=== PATIENT | male | born 1965 | race Caucasian/White ===

== ENCOUNTER 2018-01-21 09:36 | Inpatient (IN) | payer OTHER ==
[2018-01-21 10:40] VITALS: BMI 23.0
--- NOTE | 2018-01-21 10:55 | HP ---
COWS - Scale Resting Pulse: 0= [place] 80 or Below Sweatin= Chills/Flushing Restless Observation: 0= Sits Still Pupil Size: 0= Normal to Room Light Bone or Joint Aches: 1= Mild Discomfort Runny Nose/ Eye Tearin= Runny Nose/Eyes GI Upset > 30mins: 2= Nausea/Diarrhea Tremor Observation: 0= None Yawning Observation: 0= None Anxiety or Irritability: 1=Feels Anxious/Irritable Goose Flesh Skin: 0=Smooth Skin COWS Score: 7 CIWA Score - CIWA Score Nausea/Vomitin-Mild Nausea/No Vomiting Muscle Tremors: None Anxiety: 2 Agitation: 0-Normal Activity Paroxysmal Sweats: 2 Orientation: 0-Oriented Tacttile Disturbances: 0-None Auditory Disturbances: 0-None Visual Disturbances: 0-None Headache: 0-None Present CIWA-Ar Total Score: 5 Admission ROS S - HPI Allergies/Adverse Reactions: Allergies Allergy/AdvReac Type Severity Reaction Status Date / Time Fish Containing Products Allergy Verified 01/21/18 11:04 History of Present Illness: pt here requesting detox from heroin use , reports 1 bundle/ day via inhalation , denies ivdu , use since age 14 , latest last night , prior detox 90 days ago @ [facility] . utox + mop, + oxy , + mtd reports took methadone from a friend denies pills tobacco ; 1 ppd requesting nrt w/ gum denies other illicits etoh : every 2 days : 1 pint ,reports tremors if not drinking , + nausea , latest use last night lost 40 lbs in the last 3 mo 2/2 not eating pmhx : denies pshx : denies psych : denies meds : denies - Ebola screening Have you traveled outside of the country in the last 21 days: No Have you had contact with anyone from an Ebola affected area: No Have you been sick,other than usual withdrawal symptoms: No - Review of Systems Constitutional: See HPI EENT: reports: No Symptoms Reported Respiratory: reports: No Symptoms reported Cardiac: reports: No Symptoms Reported GI: reports: See HPI : reports: No Symptoms Reported Musculoskeletal: reports: See HPI Integumentary: reports: No Symptoms Reported Neuro: reports: See HPI Endocrine: reports: No Symptoms Reported Hematology: reports: No Symptoms Reported Psychiatric: reports: No Sypmtoms Reported, Judgement Intact, Orientated x3 Patient History - Patient Medical History Hx Asthma: Yes (HAS NOT USED ALBUTEROL FOR A WHILE) Hx Chronic Obstructive Pulmonary Disease (COPD): No Hx Cardiac Disorders: No Hx Hypertension: No Hx Hypercholesterolemia: No HX Cerebrovascular Accident: No Hx Seizures: No Hx Diabetes: No Hx Gastrointestinal Disorders: Yes (NOT CURRENTLY ON MED) Hx Genitourinary Disorders: No Hx Sexually Transmitted Disorders: No Hx Renal Disease (ESRD): No Hx Thyroid Disease: No Hx Human Immunodeficiency Virus (HIV): No (NEGATIVE HX) Hx Hepatitis C: No Hx Depression: No Hx Suicide Attempt: No (DENIES) Hx Schizophrenia: No - Patient Surgical History Past Surgical History: No Hx Neurologic Surgery: No Hx Cataract Extraction: No Hx Cardiac Surgery: No Hx Lung Surgery: No Hx Breast Surgery: No Hx Breast Biopsy: No Hx Abdominal Surgery: No Hx Appendectomy: No Hx Cholecystectomy: No Hx Genitourinary Surgery: No Hx Section: No Hx Orthopedic Surgery: No Anesthesia Reaction: No - PPD History Date: 12/31/13 - Smoking Cessation Smoking history: Current every day smoker Have you smoked in the past 12 months: Yes Aproximately how many cigarettes per day: 20 Hx Chewing Tobacco Use: No Initiated information on smoking cessation: No Family Disease History - Family Disease History Family History: Denies Admission Physical Exam BHS - Vital Signs Vital Signs: Vital Signs - 24 hr 01/21/18 10:27 Temperature 97.3 F L Pulse Rate 62 Respiratory 18 Rate Blood Pressure 107/68 - Physical General Appearance: Yes: Nourished, Appropriately Dressed, Mild Distress HEENTM: Yes: EOMI, Hearing grossly Normal, Normal ENT Inspection, Normocephalic , Normal Voice, LAI, Pharynx Normal, Other (glasses) Respiratory: Yes: Within Normal Limits, Chest Non-Tender, Lungs Clear, Normal Breath Sounds, No Respiratory Distress, No Accessory Muscle Use Neck: Yes: Within Normal Limits, No masses,lesions,Nodules, Trachea in good position Cardiology: Yes: Within Normal Limits, Regular Rhythm, Regular Rate Abdominal: Yes: Within Normal Limits, Normal Bowel Sounds, Non Tender, Flat, Soft Genitourinary: Yes: Within Normal Limits Back: Yes: Within Normal Limits, Normal Inspection Musculoskeletal: Yes: Within Normal Limits, full range of Motion, Gait Steady, Pelvis Stable Extremities: Yes: Within Normal Limits, Normal Capillary Refill, Normal Inspection, Normal Range of Motion, Non-Tender Neurological: Yes: Within Normal Limits, Fully Oriented, Alert, Motor Strength 5 /5, Normal Mood/Affect, Normal Response Integumentary: Yes: Within Normal Limits, Normal Color, Dry, Warm - Diagnostic (1) Opioid withdrawal Current Visit: Yes Status: Acute (2) Alcohol dependence Current Visit: Yes Status: Acute Qualifiers: Substance use status: uncomplicated Qualified Code(s): F10.20 - Alcohol dependence, uncomplicated BHS Breath Alcohol Content Breath Alcohol Content: 0 Urine Drug Screen - Results Drug Screen Negative: No Urine Drug Screen Results: OPI-Opiates, MTD-Methadone, OXY-Oxycodone
[2018-01-21] MEDS ORDERED: chlordiazePOXIDE HCL 25 MG CAPSULE PO PRN (11:01)
[2018-01-21] MEDS ORDERED: NICOTINE POLACRILEX 2 MG GUM BUC PRN (11:48)
[2018-01-21] MEDS ORDERED: ACETAMINOPHEN 325 MG TABLET (FP) PO PRN (12:09)
[2018-01-21] MEDS ORDERED: P-EPHED 60MG/TRIPROLIDI 2.5MG TABLET PO PRN (12:09)
[2018-01-21] MEDS ORDERED: MENTHOL/PHENOL 1 EACH UD MM PRN (12:09)
[2018-01-21] MEDS ORDERED: LOPERAMIDE HCL 2 MG CAPSULE PO PRN (12:09)
[2018-01-21] MEDS ORDERED: MAGNESIUM HYDROX 2400MG/30ML ORAL SUSPENSION 30 ML CUP PO PRN (12:09)
[2018-01-21] MEDS ORDERED: guaiFENesin/D-METHORPHAN HB 10 ML UNIT-DOSE CUPS PO PRN (12:09)
[2018-01-21] MEDS ORDERED: IBUPROFEN 400 MG TABLET (FP) PO PRN (12:09)
[2018-01-21] MEDS ORDERED: MAG HYDROX/AL HYDROX/SIMETH 30 ML UNIT-DOSE CUP PO PRN (12:09)
[2018-01-21] MEDS ORDERED: MAGNESIUM CITRATE 300 ML BOTTLE PO PRN (12:09)
[2018-01-21] MEDS ORDERED: METHADONE HCL 10 MG TABLET (FOR DETOX USE ONLY) PO ONE ×2 (13:00→23:00)
[2018-01-21] MEDS: chlordiazePOXIDE HCL 25 MG CAPSULE PO SCH ×2 (17:20→22:33)
[2018-01-21] MEDS ORDERED: MELATONIN 5 MG TABLETS PO PRN (22:00)
[2018-01-21] MEDS: THIAMINE HCL 100 MG TABLET (FP) PO SCH (22:32)
[2018-01-22] MEDS: chlordiazePOXIDE HCL 25 MG CAPSULE PO SCH ×4 (05:28→22:40)
--- NOTE | 2018-01-22 09:52 | EKG ---
Test Reason : Blood Pressure : / mmHG Vent. Rate : 064 BPM Atrial Rate : 064 BPM P-R Int : 154 ms QRS Dur : 084 ms QT Int : 394 ms P-R-T Axes : 076 059 036 degrees QTc Int : 406 ms NORMAL SINUS RHYTHM NORMAL ECG NO PREVIOUS ECGS AVAILABLE Confirmed by MAYRA DODGE, DAISY ([id number]) on 01/22/2018 9:51:59 AM Referred By: Confirmed By:DAISY NUNEZ MD
[2018-01-22] MEDS: PRENATAL VITAMINS W/ FOLIC ACID TABLET (FP) PO SCH (09:56)
[2018-01-22 09:57] LABS: HEMATOCRIT 40.4 % (35.4-49); HEMOGLOBIN 13.1 GM/dL (11.7-16.9); MCH 29.7 pg (25.7-33.7); MCHC 32.4 g/dl (32.0-35.9); MEAN CELL VOLUME 91.6 fl (80-96); MEAN PLT VOLUME 11.4 fl (7.5-11.1); PLATELET COUNT 207 K/MM3 (134-434); RBC 4.41 M/mm3 (4.00-5.60)
[2018-01-22] MEDS ORDERED: METHADONE HCL 10 MG TABLET (FOR DETOX USE ONLY) PO SCH (10:00)
--- NOTE | 2018-01-22 10:52 | PN ---
S CIWA - CIWA Score Nausea/Vomitin Muscle Tremors: 2 Anxiety: 1-Mildly Anxious Agitation: 1-Slight > Activity Paroxysmal Sweats: 2 Orientation: 0-Oriented Tacttile Disturbances: 0-None Auditory Disturbances: 0-None Visual Disturbances: 0-None Headache: 3-Moderate CIWA-Ar Total Score: 11 BHS COWS - Scale Resting Pulse: 0= [place] 80 or Below Sweatin= Chills/Flushing Restless Observation: 0= Sits Still Pupil Size: 2= Moderately Dilated Bone or Joint Aches: 1= Mild Discomfort Runny Nose/ Eye Tearin= None GI Upset > 30mins: 2= Nausea/Diarrhea Tremor Observation of Outstretched Hands: 2= Slight Tremor Visible Yawning Observation: 1= 1-2x During Session Anxiety or Irritability: 1=Feels Anxious/Irritable Goose Flesh Skin: 0=Smooth Skin COWS Score: 10 BHS Progress Note (SOAP) Subjective: PATIENT C/O CHILLS, SWEATING, BODY ACHES, NAUSEA AND DIARRHEA. Objective: 01/22/18 10:50 Vital Signs Temperature 96.4 F L 01/22/18 09:39 Pulse Rate 86 01/22/18 09:39 Respiratory Rate 18 01/22/18 09:39 Blood Pressure 107/75 01/22/18 09:39 O2 Sat by Pulse Oximetry (%) Laboratory Tests 01/22/18 06:00 WBC 7.0 RBC 4.41 Hgb 13.1 Hct 40.4 D MCV 91.6 MCH 29.7 MCHC 32.4 RDW 14.0 Plt Count 207 MPV 11.4 H SKIN +GOOSEFLESH, INTACT, MOIST CAR S1S2 RESP CTA BL GI SOFT, HYPERACTIVE BS, NT EXT +TREMORS, FULL ROM Assessment: 01/22/18 10:51 WITHDRAWAL SYNDROME Plan: CONTINUE IMMODIUM PRN ENCOURAGE ORAL FLUIDS CONTINUE DETOX AND MONITOR CLINICALLY
[2018-01-22 10:53] LABS: ALBUMIN 3.6 g/dl (3.4-5.0); ALK PHOS 118 U/L (45-117); ANION GAP 6 MMOL/L (8-16); BILIRUBIN,TOTAL 0.4 mg/dL (0.2-1); BLOOD UREA NITROGEN 11 mg/dL (7-18); CALCIUM 8.9 mg/dL (8.5-10.1); CHLORIDE 105 mmol/L (98-107); CO2 28 mmol/L (21-32); CREATININE 0.9 mg/dL (0.55-1.3); GLUCOSE,RANDOM 81 mg/dL (74-106); POTASSIUM 4.2 mmol/L (3.5-5.1); SGOT/AST 23 U/L (15-37); SGPT/ALT 29 U/L (13-61); SODIUM 139 mmol/L (136-145); TOT PROT 6.9 g/dl (6.4-8.2)
[2018-01-22] MEDS: THIAMINE HCL 100 MG TABLET (FP) PO SCH (22:40)
[2018-01-23] MEDS: chlordiazePOXIDE HCL 25 MG CAPSULE PO SCH ×2 (04:45→11:06)
[2018-01-23] MEDS ORDERED: METHADONE HCL 5 MG TABLET (FOR DETOX USE ONLY) PO SCH (10:00)
[2018-01-23 10:18] VITALS: BP 140/80; PULSE 78; TEMP 96.6
[2018-01-23] MEDS: PRENATAL VITAMINS W/ FOLIC ACID TABLET (FP) PO SCH (10:46)
--- NOTE | 2018-01-23 11:22 | PN ---
S CIWA - CIWA Score Nausea/Vomitin-No Nausea/No Vomiting Muscle Tremors: 2 Anxiety: 4-Mod. Anxious/Guarded Agitation: 4-Moderately Restless Paroxysmal Sweats: 2 Orientation: 0-Oriented Tacttile Disturbances: 0-None Auditory Disturbances: 0-None Visual Disturbances: 0-None Headache: 0-None Present CIWA-Ar Total Score: 12 BHS COWS - Scale Resting Pulse: 0= [place] 80 or Below Sweatin=Flushed/Facial Moisture Restless Observation: 1= Difficult to Sit Still Pupil Size: 0= Normal to Room Light Bone or Joint Aches: 2= Severe Diffuse Aches Runny Nose/ Eye Tearin= None GI Upset > 30mins: 0= None Tremor Observation of Outstretched Hands: 2= Slight Tremor Visible Yawning Observation: 0= None Anxiety or Irritability: 2=Irritable/Anxious Goose Flesh Skin: 0=Smooth Skin COWS Score: 9 BHS Progress Note (SOAP) Subjective: PATIENT C/O BODY ACHES, CHILLS, SWEATING. ANXIOUS AND IRRITABLE. Objective: 01/23/18 11:19 Vital Signs Temperature 96.6 F L 01/23/18 10:17 Pulse Rate 78 01/23/18 10:17 Respiratory Rate 20 01/23/18 10:17 Blood Pressure 140/80 01/23/18 10:17 O2 Sat by Pulse Oximetry (%) Laboratory Tests 01/22/18 01/22/18 01/22/18 06:00 06:00 06:00 WBC 7.0 RBC 4.41 Hgb 13.1 Hct 40.4 D MCV 91.6 MCH 29.7 MCHC 32.4 RDW 14.0 Plt Count 207 MPV 11.4 H Sodium 139 Potassium 4.2 Chloride 105 Carbon Dioxide 28 Anion Gap 6 L BUN 11 Creatinine 0.9 Creat Clearance w eGFR > 60 Random Glucose 81 Calcium 8.9 Total Bilirubin 0.4 AST 23 ALT 29 Alkaline Phosphatase 118 H Total Protein 6.9 Albumin 3.6 RPR Titer Nonreactive PE: ALERT AND ORIENTED X 3 SKIN WARM AND MOIST EXT FULL ROM PATIENT IRRITABLE AND ANXIOUS. PATIENT STATES " I AM HERE GOING THROUGH THIS BECAUSE OF MY FUCKING " Assessment: 01/23/18 11:22 WITHDRAWAL SYNDROME Plan: CONTINUE DETOX ENCOURAGE ORAL FLUIDS VISTARIL PRN CONTINUED CONTINUE TO MONITOR
[2018-01-23] MEDS ORDERED: chlordiazePOXIDE 5 MG CAPSULE PO SCH (17:00)
--- NOTE | 2018-01-23 20:08 | DS ---
[facility] Detox Discharge Summary Admission Date: 01/21/18 Discharge Date: 01/23/18 - History Present History: Alcohol Dependence, Opioid Dependence - Physical Exam Results Vital Signs: Vital Signs Temperature 96.6 F L 01/23/18 10:17 Pulse Rate 78 01/23/18 10:17 Respiratory Rate 20 01/23/18 10:17 Blood Pressure 140/80 01/23/18 10:17 O2 Sat by Pulse Oximetry (%) - Medication Discharge Medications: Ambulatory Orders NK [No Known Home Medication] 12/29/13 - Diagnosis (1) Opioid withdrawal Status: Acute (2) Heroin dependence Status: Acute - AMA Did Patient Leave Against Medical Advice: Yes
[2018-01-24] MEDS ORDERED: METHADONE HCL 10 MG TABLET (FOR DETOX USE ONLY) PO SCH (10:00)
[2018-01-24] MEDS ORDERED: chlordiazePOXIDE HCL 10 MG CAPSULE PO SCH (17:00)
[2018-01-25] MEDS ORDERED: METHADONE HCL 5 MG TABLET (FOR DETOX USE ONLY) PO SCH (06:00)
== END 2018-01-23 11:00 | disposition left against medical advice (07) | DRG 770 ==
LOC: YASAS 09:36 → Y3N 12:41
PROC: HZ2ZZZZ Detoxification Services for Substance Abuse Treatment (ICD-10-PCS; principal; 2018-01-20)
DX: F11.23 Opioid dependence with withdrawal (principal); F10.230 Alcohol dependence with withdrawal, uncomplicated; F17.210 Nicotine dependence, cigarettes, uncomplicated; Z91.013 Allergy to seafood
CPT/HCPCS: 36415; 80053; 85027; 86593; 93005; 93010

== ENCOUNTER 2018-07-27 12:16 | Inpatient (IN) | payer OTHER ==
[2018-07-27 13:15] VITALS: BMI 22.8
--- NOTE | 2018-07-27 13:34 | HP ---
COWS - Scale Resting Pulse: 0= [place] 80 or Below Sweatin= Chills/Flushing Restless Observation: 3= Extraneous Movement Pupil Size: 1= Pupils >than Normal Bone or Joint Aches: 2= Severe Diffuse Aches Runny Nose/ Eye Tearin= Runny Nose/Eyes GI Upset > 30mins: 2= Nausea/Diarrhea Tremor Observation: 2= Slight Tremor Visible Yawning Observation: 1= 1-2x During Session Anxiety or Irritability: 2=Irritable/Anxious Goose Flesh Skin: 0=Smooth Skin COWS Score: 16 CIWA Score - Admission Criteria [facility] Guidelines: Admission for Medically Managed Detox: Requires at least one of the followin. CIWA greater than 12 2. Seizures within the past 24 hours 3. Delirium tremens within the past 24 hours 4. Hallucinations within the past 24 hours 5. Acute intervention needed for co occurring medical disorder 6. Acute intervention needed for co occurring psychiatric disorder 7. Severe withdrawal that cannot be handled at a lower level of care (continued vomiting, continued diarrhea, abnormal vital signs) requiring intravenous medication and/or fluids 8. Admission ROS S - HPI Chief Complaint: i need help to stop using heroin Allergies/Adverse Reactions: Allergies Allergy/AdvReac Type Severity Reaction Status Date / Time Fish Containing Products Allergy Severe Rash Verified 01/21/18 12:24 NKDA Allergy Uncoded 01/21/18 12:38 History of Present Illness: this 53 years old male with heroin dependence,seeking detox,withdrawal symptom. has previous admission before,last 01/21/18 to 01/23/18 not completed nicotine dependence 1 pack requesting gum weight loss longest of sobriety 1 and half years arthritis of right foot plan to go to rehab after detox Exam Limitations: No Limitations - Ebola screening Have you traveled outside of the country in the last 21 days: No (N) Have you had contact with anyone from an Ebola affected area: No Do you have a fever: No - Review of Systems Constitutional: Chills, Loss of Appetite, Malaise, Night Sweats, Changes in sleep, Weakness, Unintentional Wgt. Loss EENT: reports: Tearing, Nose Congestion Respiratory: reports: No Symptoms reported Cardiac: reports: No Symptoms Reported GI: reports: Nausea, Vomiting, Abdominal cramping : reports: No Symptoms Reported Musculoskeletal: reports: Back Pain, Muscle Pain, Neck Pain, Joint Stiffness Integumentary: reports: Dryness Neuro: reports: Headache, Tremors Endocrine: reports: No Symptoms Reported Hematology: reports: No Symptoms Reported Psychiatric: reports: No Sypmtoms Reported, Judgement Intact, Mood/Affect Appropiate, Orientated x3 Other Systems: Reviewed and Negative Patient History - Patient Medical History Hx Anemia: No Hx Asthma: Yes (on albuterol inhaler) Hx Chronic Obstructive Pulmonary Disease (COPD): No Hx Cancer: No Hx Cardiac Disorders: No Hx Congestive Heart Failure: No Hx Hypertension: No Hx Hypercholesterolemia: No Hx Pacemaker: No HX Cerebrovascular Accident: No Hx Seizures: No Hx Diabetes: No Hx Gastrointestinal Disorders: No Hx Liver Disease: No Hx Genitourinary Disorders: No Hx Sexually Transmitted Disorders: No Hx Renal Disease (ESRD): No Hx Thyroid Disease: No Hx Human Immunodeficiency Virus (HIV): No (NEGATIVE HX last 01/30 ) Hx Hepatitis C: No Hx Depression: Yes (no medication) Hx Suicide Attempt: No Hx Bipolar Disorder: No Hx Schizophrenia: No Other Medical History: no suicidal,no homicidal - Patient Surgical History Past Surgical History: No Hx Neurologic Surgery: No Hx Cataract Extraction: No Hx Cardiac Surgery: No Hx Lung Surgery: No Hx Breast Surgery: No Hx Breast Biopsy: No Hx Abdominal Surgery: No Hx Appendectomy: No Hx Cholecystectomy: No Hx Genitourinary Surgery: No Hx Section: No Hx Orthopedic Surgery: No Anesthesia Reaction: No - PPD History Previous Implant?: Yes Documented Results: Negative w/proof Implanted On Prior [facility] Admission?: Yes Date: 01/23/18 Results: 0 mm PPD to be Administered?: No - Smoking Cessation Smoking history: Current every day smoker Have you smoked in the past 12 months: Yes Aproximately how many cigarettes per day: 20 Hx Chewing Tobacco Use: No Initiated information on smoking cessation: Yes 'Breaking Loose' booklet given: 07/27/18 - Substance & Tx. History Hx Alcohol Use: No Hx Substance Use: Yes Substance Use Type: Heroin Hx Substance Use Treatment: Yes ([facility] 01/21/18 to 01/23/18) - Substances abused Heroin Substance route: Inhalation Frequency: Daily Amount used: 15 bags Age of first use: 18 Date of last use: 07/26/18 Family Disease History - Family Disease History Family History: Denies Admission Physical Exam BHS - Vital Signs Vital Signs: Vital Signs - 24 hr 07/27/18 13:13 Temperature 97.8 F Pulse Rate 72 Respiratory 18 Rate Blood Pressure 105/72 - Physical General Appearance: Yes: Moderate Distress, Tremorous, Irritable, Sweating, Anxious HEENTM: Yes: Normocephalic, LAI, Pharynx Normal Respiratory: Yes: Within Normal Limits, Lungs Clear, Normal Breath Sounds Neck: Yes: Within Normal Limits, Supple, Trachea in good position Breast: Yes: Within Normal Limits Cardiology: Yes: Within Normal Limits, Regular Rhythm, Regular Rate, S1, S2 Abdominal: Yes: Within Normal Limits, Normal Bowel Sounds, Non Tender, Flat, Soft Genitourinary: Yes: Within Normal Limits Back: Yes: Muscle Spasm Musculoskeletal: Yes: full range of Motion, Back pain, Joint Stiffness, Muscle Pain Extremities: Yes: Tremors, Other (arthritis of right foot) 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 NML intact, Fully Oriented, Alert, Motor Strength 5/5 Integumentary: Yes: Dry Lymphatic: Yes: Within Normal Limits - Diagnostic (1) Opioid dependence with withdrawal Current Visit: Yes Status: Acute (2) Asthma Current Visit: No Status: Chronic (3) Nicotine dependence Current Visit: Yes Status: Acute (4) Arthritis of right foot Current Visit: Yes Status: Acute (5) Weight loss Current Visit: Yes Status: Acute (6) Depression Current Visit: Yes Status: Acute Cleared for Admission [facility] - Detox or Rehab [facility] Level of Care: Medically Managed Detox Regimen/Protocol: Methadone Breathalyzer - Breathalyzer Breathalyzer: 0 Urine Drug Screen - Test Device Lot number: [id number] Expiration date: 03/14/20 - Control Is test valid?: Yes - Results Drug screen NEGATIVE: No Urine drug screen results: MOP-Opiates, OXY-Oxycodone Inpatient Rehab Admission - Rehab Decision to Admit Inpatient rehab admission?: No
[2018-07-27] MEDS ORDERED: MAGNESIUM CITRATE 300 ML BOTTLE PO PRN (13:43)
[2018-07-27] MEDS ORDERED: NICOTINE POLACRILEX 2 MG GUM BUC PRN (13:43)
[2018-07-27] MEDS ORDERED: MAG HYDROX/AL HYDROX/SIMETH 30 ML UNIT-DOSE CUP PO PRN (13:43)
[2018-07-27] MEDS ORDERED: METHOCARBAMOL 500 MG TABLET PO PRN (13:43)
[2018-07-27] MEDS ORDERED: IBUPROFEN 400 MG TABLET (FP) PO PRN (13:43)
[2018-07-27] MEDS ORDERED: MELATONIN 5 MG TABLETS PO PRN (13:43)
[2018-07-27] MEDS ORDERED: hydrOXYzine PAMOATE 25 MG CAPSULE (FP) PO PRN (13:43)
[2018-07-27] MEDS ORDERED: MAGNESIUM HYDROX 2400MG/30ML ORAL SUSPENSION 30 ML CUP PO PRN (13:43)
[2018-07-27] MEDS ORDERED: MENTHOL/PHENOL 1 EACH UD MM PRN (13:43)
[2018-07-27] MEDS ORDERED: cloNIDine HCL 0.1 MG TABLET PO PRN (13:43)
[2018-07-27] MEDS ORDERED: ACETAMINOPHEN 325 MG TABLET (FP) PO PRN ×2 (13:43)
[2018-07-27] MEDS ORDERED: BISMUTH SUBSALICYLATE 524 MG/30 ML UD PO PRN (13:43)
[2018-07-27] MEDS ORDERED: METHADONE HCL 10 MG TABLET (FOR DETOX USE ONLY) PO ONE ×2 (13:46→23:00)
[2018-07-27] MEDS: clonazePAM 0.5 MG TABLET PO PRN (15:28)
[2018-07-27] MEDS: THIAMINE HCL 100 MG TABLET (FP) PO SCH (22:10)
[2018-07-28 09:58] LABS: HEMATOCRIT 42.8 % (35.4-49); HEMOGLOBIN 14.1 GM/dL (11.7-16.9); MCH 30.1 pg (25.7-33.7); MCHC 33.1 g/dl (32.0-35.9); MEAN CELL VOLUME 91.2 fl (80-96); MEAN PLT VOLUME 9.9 fl (7.5-11.1); PLATELET COUNT 205 K/MM3 (134-434); RBC 4.69 M/mm3 (4.00-5.60); WHITE BLOOD COUNT 6.2 K/mm3 (4.0-10.0)
[2018-07-28] MEDS ORDERED: METHADONE HCL 10 MG TABLET (FOR DETOX USE ONLY) PO ONE (10:00)
--- NOTE | 2018-07-28 10:04 | PN ---
BHS COWS - Scale Resting Pulse: 0= [place] 80 or Below Sweatin= Chills/Flushing Restless Observation: 1= Difficult to Sit Still Pupil Size: 1= Pupils >than Normal Bone or Joint Aches: 2= Severe Diffuse Aches Runny Nose/ Eye Tearin= Nasal Congestion GI Upset > 30mins: 1= Stomach Cramp Tremor Observation of Outstretched Hands: 1= Tremor [place], Not Seen Yawning Observation: 1= 1-2x During Session Anxiety or Irritability: 1=Feels Anxious/Irritable Goose Flesh Skin: 3=Piloerection COWS Score: 13 BHS Progress Note (SOAP) Subjective: general body aches doing well with methadone detox regimen Objective: 07/28/18 10:05 Vital Signs Temperature 98.9 F 07/28/18 09:06 Pulse Rate 61 07/28/18 09:06 Respiratory Rate 18 07/28/18 09:06 Blood Pressure 97/69 07/28/18 09:06 O2 Sat by Pulse Oximetry (%) Laboratory Last Values WBC 6.2 K/mm3 (4.0-10.0) 07/28/18 07:00 RBC 4.69 M/mm3 (4.00-5.60) 07/28/18 07:00 Hgb 14.1 GM/dL (11.7-16.9) 07/28/18 07:00 Hct 42.8 % (35.4-49) 07/28/18 07:00 MCV 91.2 fl (80-96) 07/28/18 07:00 MCH 30.1 pg (25.7-33.7) 07/28/18 07:00 MCHC 33.1 g/dl (32.0-35.9) 07/28/18 07:00 RDW 14.0 % (11.9-15.9) 07/28/18 07:00 Plt Count 205 K/MM3 (134-434) 07/28/18 07:00 MPV 9.9 fl (7.5-11.1) D 07/28/18 07:00 lab noted 07/28/18 10:06 encourage oral fluid 2-3 L daily Assessment: 07/28/18 10:06 withdrawal sx 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
[2018-07-28] MEDS: PRENATAL VITAMINS W/ FOLIC ACID TABLET (FP) PO SCH (10:10)
[2018-07-28] MEDS: clonazePAM 0.5 MG TABLET PO PRN (10:12)
[2018-07-28 10:16] LABS: ALBUMIN 3.2 g/dl (3.4-5.0); ALK PHOS 103 U/L (45-117); ANION GAP 4 MMOL/L (8-16); BILIRUBIN,TOTAL 0.3 mg/dL (0.2-1); BLOOD UREA NITROGEN 15 mg/dL (7-18); CALCIUM 8.7 mg/dL (8.5-10.1); CHLORIDE 108 mmol/L (98-107); CO2 28 mmol/L (21-32); CREATININE 0.8 mg/dL (0.55-1.3); GLUCOSE,RANDOM 97 mg/dL (74-106); POTASSIUM 4.3 mmol/L (3.5-5.1); SGOT/AST 16 U/L (15-37); SGPT/ALT 26 U/L (13-61); SODIUM 139 mmol/L (136-145); TOT PROT 6.3 g/dl (6.4-8.2)
[2018-07-28] MEDS: THIAMINE HCL 100 MG TABLET (FP) PO SCH (22:33)
[2018-07-29] MEDS ORDERED: METHADONE HCL 10 MG TABLET (FOR DETOX USE ONLY) PO ONE (10:00)
[2018-07-29] MEDS: PRENATAL VITAMINS W/ FOLIC ACID TABLET (FP) PO SCH (10:05)
[2018-07-29] MEDS: clonazePAM 0.5 MG TABLET PO PRN (10:05)
--- NOTE | 2018-07-29 11:41 | PN ---
BHS COWS - Scale Resting Pulse: 0= [place] 80 or Below Sweatin= Chills/Flushing Restless Observation: 0= Sits Still Pupil Size: 0= Normal to Room Light Bone or Joint Aches: 1= Mild Discomfort Runny Nose/ Eye Tearin= Nasal Congestion GI Upset > 30mins: 1= Stomach Cramp Tremor Observation of Outstretched Hands: 2= Slight Tremor Visible Yawning Observation: 2= >3x During Session Anxiety or Irritability: 2=Irritable/Anxious Goose Flesh Skin: 0=Smooth Skin COWS Score: 10 BHS Progress Note (SOAP) Subjective: body ache resting on bed low energy Objective: 07/29/18 12:04 Vital Signs Temperature 96.4 F L 07/29/18 09:05 Pulse Rate 60 07/29/18 09:05 Respiratory Rate 20 07/29/18 09:05 Blood Pressure 100/60 07/29/18 09:05 O2 Sat by Pulse Oximetry (%) Laboratory Last Values WBC 6.2 K/mm3 (4.0-10.0) 07/28/18 07:00 RBC 4.69 M/mm3 (4.00-5.60) 07/28/18 07:00 Hgb 14.1 GM/dL (11.7-16.9) 07/28/18 07:00 Hct 42.8 % (35.4-49) 07/28/18 07:00 MCV 91.2 fl (80-96) 07/28/18 07:00 MCH 30.1 pg (25.7-33.7) 07/28/18 07:00 MCHC 33.1 g/dl (32.0-35.9) 07/28/18 07:00 RDW 14.0 % (11.9-15.9) 07/28/18 07:00 Plt Count 205 K/MM3 (134-434) 07/28/18 07:00 MPV 9.9 fl (7.5-11.1) D 07/28/18 07:00 Sodium 139 mmol/L (136-145) 07/28/18 07:00 Potassium 4.3 mmol/L (3.5-5.1) 07/28/18 07:00 Chloride 108 mmol/L (98-107) H 07/28/18 07:00 Carbon Dioxide 28 mmol/L (21-32) 07/28/18 07:00 Anion Gap 4 MMOL/L (8-16) L 07/28/18 07:00 BUN 15 mg/dL (7-18) 07/28/18 07:00 Creatinine 0.8 mg/dL (0.55-1.3) 07/28/18 07:00 Creat Clearance w eGFR 101.51 (>60) 07/28/18 07:00 Random Glucose 97 mg/dL (74-106) 07/28/18 07:00 Calcium 8.7 mg/dL (8.5-10.1) 07/28/18 07:00 Total Bilirubin 0.3 mg/dL (0.2-1) 07/28/18 07:00 AST 16 U/L (15-37) 07/28/18 07:00 ALT 26 U/L (13-61) 07/28/18 07:00 Alkaline Phosphatase 103 U/L (45-117) 07/28/18 07:00 Total Protein 6.3 g/dl (6.4-8.2) L 07/28/18 07:00 Albumin 3.2 g/dl (3.4-5.0) L 07/28/18 07:00 RPR Titer Nonreactive (NONREACTIVE) 07/28/18 07:00 lab noted Assessment: 07/29/18 12:04 withdrawal sx Plan: continue detox
[2018-07-29] MEDS: THIAMINE HCL 100 MG TABLET (FP) PO SCH (22:47)
[2018-07-30 09:14] VITALS: BP 92/54; PULSE 58; TEMP 98.4
[2018-07-30] MEDS ORDERED: METHADONE HCL 10 MG TABLET (FOR DETOX USE ONLY) PO ONE (10:00)
[2018-07-30] MEDS: PRENATAL VITAMINS W/ FOLIC ACID TABLET (FP) PO SCH (10:28)
--- NOTE | 2018-07-30 10:37 | DS ---
[facility] Detox Discharge Summary Admission Date: 07/27/18 Discharge Date: 07/30/18 - History Present History: Opioid Dependence Additional Comments: 53 years old male admitted on 07/27/18 for opiate withdrawal stabilization feeling better today alert no acute distress denies suicidal ideation aftercare Pertinent Past History: bring in medication list and lab report to aftercare appointment - Physical Exam Results Vital Signs: Vital Signs Temperature 98.4 F 07/30/18 09:12 Pulse Rate 58 L 07/30/18 09:12 Respiratory Rate 18 07/30/18 09:12 Blood Pressure 92/54 L 07/30/18 09:12 O2 Sat by Pulse Oximetry (%) Pertinent Admission Physical Exam Findings: opiate withdrawal sx Laboratory Last Values WBC 6.2 K/mm3 (4.0-10.0) 07/28/18 07:00 RBC 4.69 M/mm3 (4.00-5.60) 07/28/18 07:00 Hgb 14.1 GM/dL (11.7-16.9) 07/28/18 07:00 Hct 42.8 % (35.4-49) 07/28/18 07:00 MCV 91.2 fl (80-96) 07/28/18 07:00 MCH 30.1 pg (25.7-33.7) 07/28/18 07:00 MCHC 33.1 g/dl (32.0-35.9) 07/28/18 07:00 RDW 14.0 % (11.9-15.9) 07/28/18 07:00 Plt Count 205 K/MM3 (134-434) 07/28/18 07:00 MPV 9.9 fl (7.5-11.1) D 07/28/18 07:00 Sodium 139 mmol/L (136-145) 07/28/18 07:00 Potassium 4.3 mmol/L (3.5-5.1) 07/28/18 07:00 Chloride 108 mmol/L (98-107) H 07/28/18 07:00 Carbon Dioxide 28 mmol/L (21-32) 07/28/18 07:00 Anion Gap 4 MMOL/L (8-16) L 07/28/18 07:00 BUN 15 mg/dL (7-18) 07/28/18 07:00 Creatinine 0.8 mg/dL (0.55-1.3) 07/28/18 07:00 Creat Clearance w eGFR 101.51 (>60) 07/28/18 07:00 Random Glucose 97 mg/dL (74-106) 07/28/18 07:00 Calcium 8.7 mg/dL (8.5-10.1) 07/28/18 07:00 Total Bilirubin 0.3 mg/dL (0.2-1) 07/28/18 07:00 AST 16 U/L (15-37) 07/28/18 07:00 ALT 26 U/L (13-61) 07/28/18 07:00 Alkaline Phosphatase 103 U/L (45-117) 07/28/18 07:00 Total Protein 6.3 g/dl (6.4-8.2) L 07/28/18 07:00 Albumin 3.2 g/dl (3.4-5.0) L 07/28/18 07:00 RPR Titer Nonreactive (NONREACTIVE) 07/28/18 07:00 lab noted - Treatment Hospital Course: Detox Protocol Followed, Detoxed Safely, Responded well, Discharged Condition Good, Rehab Referral Accepted Patient has Accepted a Rehab Referral to: encourage medication assisted maintenance treatment program - Medication Discharge Medications: Ambulatory Orders Naloxone HCl [Narcan] 4 mg NS ASDIR PRN 07/28/18 - Diagnosis (1) Nicotine dependence Current Visit: Yes Status: Acute Qualifiers: Nicotine product type: cigarettes Substance use status: in withdrawal Qualified Code(s): F17.213 - Nicotine dependence, cigarettes, with withdrawal (2) Opioid dependence with withdrawal Current Visit: Yes Status: Acute (3) Weight loss Current Visit: Yes Status: Acute (4) Acid reflux Current Visit: Yes Status: Chronic Qualifiers: Esophagitis presence: without esophagitis Qualified Code(s): K21.9 - Gastro -esophageal reflux disease without esophagitis (5) Asthma Current Visit: Yes Status: Chronic Qualifiers: Asthma severity: mild Asthma persistence: intermittent Asthma complication type: with status asthmaticus Qualified Code(s): J45.22 - Mild intermittent asthma with status asthmaticus - AMA Did Patient Leave Against Medical Advice: No
[2018-07-31] MEDS ORDERED: METHADONE HCL 5 MG TABLET (FOR DETOX USE ONLY) PO ONE (06:00)
== END 2018-07-30 10:45 | disposition home or self-care (01) | DRG 775 ==
LOC: YASAS 12:16 → Y3N 14:07
PROVIDERS: ADMIT Surgery; ATTEND Surgery
PROC: HZ2ZZZZ Detoxification Services for Substance Abuse Treatment (ICD-10-PCS; principal; 2018-07-27)
DX: F10.230 Alcohol dependence with withdrawal, uncomplicated (principal); F17.213 Nicotine dependence, cigarettes, with withdrawal; F32.9 Major depressive disorder, single episode, unspecified; J45.22 Mild intermittent asthma with status asthmaticus; K21.9 Gastro-esophageal reflux disease without esophagitis; M13.871 Other specified arthritis, right ankle and foot; R63.4 Abnormal weight loss; Z68.22 Body mass index [BMI] 22.0-22.9, adult; Z91.013 Allergy to seafood
CPT/HCPCS: 36415; 80053; 85027; 86593

== ENCOUNTER 2021-08-14 12:18 | Inpatient (IN) | payer OTHER ==
[2021-08-14] MEDS ORDERED: MAGNESIUM HYDROX 2400MG/30ML ORAL SUSPENSION 30 ML CUP PO PRN (12:52)
[2021-08-14] MEDS ORDERED: DICYCLOMINE HCL 10 MG CAPSULE PO PRN (12:52)
[2021-08-14] MEDS ORDERED: LOPERAMIDE HCL 2 MG CAPSULE PO PRN (12:52)
[2021-08-14] MEDS ORDERED: BISMUTH SUBSALICYLATE 262 MG/15 ML BTL PO PRN (12:52)
[2021-08-14] MEDS ORDERED: LORazepam 1 MG TABLET PO PRN (12:52)
[2021-08-14] MEDS ORDERED: MAG HYDROX/AL HYDROX/SIMETH 30 ML UNIT-DOSE CUP PO PRN (12:52)
[2021-08-14] MEDS ORDERED: BENZOCAINE/MENTHOL (CHLORASEPTIC ) LOZENGE MM PRN (12:52)
[2021-08-14] MEDS ORDERED: MAGNESIUM CITRATE 300 ML BOTTLE PO PRN (12:52)
[2021-08-14] MEDS ORDERED: NICOTINE 10 MG CARTRIDGE (INHALER) IH PRN (12:52)
[2021-08-14] MEDS ORDERED: ACETAMINOPHEN 325 MG TABLET (FP) PO PRN ×2 (12:52)
[2021-08-14] MEDS ORDERED: ONDANSETRON *ODT* 4 MG TABLET SL PRN (12:52)
[2021-08-14] MEDS ORDERED: NALOXONE HCL (KLOXXADO) 8 MG SPRAY NS PRN (12:55)
[2021-08-14 14:19] VITALS: BMI 24.3
[2021-08-14 16:45] LABS: CALCIUM 9.1 mg/dL (8.5-10.1)
[2021-08-14 16:46] LABS: ALBUMIN 3.9 g/dl (3.4-5.0); BLOOD UREA NITROGEN 20.2 mg/dL (7-18)
[2021-08-14 16:47] LABS: HEMATOCRIT 42.4 % (35.4-49); HEMOGLOBIN 13.7 GM/dL (11.7-16.9); MCH 29.2 pg (25.7-33.7); MCHC 32.3 g/dl (32.0-35.9); MEAN CELL VOLUME 90.6 fl (80-96); MEAN PLT VOLUME 10.6 fl (7.5-11.1); PLATELET COUNT 205 10^3/uL (134-434); RBC 4.68 M/mm3 (4.00-5.60); RDW 14.5 % (11.9-15.9); WHITE BLOOD COUNT 6.6 K/mm3 (4.0-10.0)
[2021-08-14 16:50] LABS: BILIRUBIN,TOTAL 0.8 mg/dL (0.2-1); TOT PROT 7.6 g/dl (6.4-8.2)
[2021-08-14] MEDS: LORazepam 2 MG TABLET PO SCH ×2 (18:01→23:44)
[2021-08-14] MEDS: PRENATAL VITAMINS W/ FOLIC ACID TABLET (FP) PO SCH (18:02)
[2021-08-14] MEDS: hydrOXYzine PAMOATE 25 MG CAPSULE (FP) PO SCH ×3 (18:02→23:44)
[2021-08-14] MEDS: NICOTINE 21 MG/24 HOURS TOPICAL PATCH TD SCH (18:02)
[2021-08-14] MEDS: IBUPROFEN 400 MG TABLET (FP) PO PRN (18:05)
[2021-08-14] MEDS: MELATONIN 5 MG TABLETS PO SCH (23:44)
[2021-08-14] MEDS: THIAMINE HCL 100 MG TABLET (FP) PO SCH (23:44)
[2021-08-15] MEDS: LORazepam 2 MG TABLET PO SCH ×4 (05:04→22:05)
[2021-08-15] MEDS: hydrOXYzine PAMOATE 25 MG CAPSULE (FP) PO SCH ×5 (05:05→22:07)
[2021-08-15] MEDS ORDERED: methaDONE HCL 10 MG TABLET PO ONE (09:06)
[2021-08-15] MEDS ORDERED: methaDONE 80 MG, methaDONE 10 MG PO ONE (09:10)
[2021-08-15] MEDS ORDERED: methaDONE HCL 10 MG TABLET ONE (10:11)
[2021-08-15] MEDS: PRENATAL VITAMINS W/ FOLIC ACID TABLET (FP) PO SCH (10:12)
[2021-08-15] MEDS ORDERED: methaDONE HCL 40 MG DISPERSABLE TABLET ONE (10:12)
[2021-08-15] MEDS: NICOTINE 21 MG/24 HOURS TOPICAL PATCH TD SCH (10:13)
[2021-08-15] MEDS: IBUPROFEN 400 MG TABLET (FP) PO PRN ×2 (13:22→22:06)
[2021-08-15] MEDS: METHOCARBAMOL 500 MG TABLET PO PRN (13:22)
[2021-08-15 16:37] LABS: HIV INTERPRETATION NEGATIVE (NEGATIVE)
[2021-08-15] MEDS: THIAMINE HCL 100 MG TABLET (FP) PO SCH (22:11)
[2021-08-15] MEDS ORDERED: BENZOCAINE 20 % GEL TUBE MM PRN (22:40)
[2021-08-15] MEDS: MELATONIN 5 MG TABLETS PO SCH (23:31)
[2021-08-16] MEDS ORDERED: methaDONE HCL 40 MG DISPERSABLE TABLET ONE (04:30)
[2021-08-16] MEDS ORDERED: methaDONE HCL 10 MG TABLET ONE (04:30)
[2021-08-16] MEDS: LORazepam 1 MG TABLET PO SCH ×4 (05:26→22:02)
[2021-08-16] MEDS: hydrOXYzine PAMOATE 25 MG CAPSULE (FP) PO SCH ×5 (05:26→22:34)
[2021-08-16] MEDS: methaDONE 80 MG, methaDONE 10 MG PO SCH (05:26)
[2021-08-16] MEDS ORDERED: methaDONE HCL 10 MG TABLET PO SCH (06:00)
[2021-08-16] MEDS: PRENATAL VITAMINS W/ FOLIC ACID TABLET (FP) PO SCH (10:33)
[2021-08-16] MEDS: NICOTINE 21 MG/24 HOURS TOPICAL PATCH TD SCH (10:35)
[2021-08-16] MEDS: IBUPROFEN 400 MG TABLET (FP) PO PRN ×2 (10:37→17:45)
[2021-08-16 14:08] LABS: SARS-CoV-2 NAA Not Detected (Not Detected)
[2021-08-16] MEDS: MELATONIN 5 MG TABLETS PO SCH (22:34)
[2021-08-16] MEDS: THIAMINE HCL 100 MG TABLET (FP) PO SCH (22:34)
[2021-08-17] MEDS ORDERED: LORazepam 0.5 MG TABLET PO PRN
[2021-08-17] MEDS ORDERED: methaDONE HCL 40 MG DISPERSABLE TABLET ONE (04:06)
[2021-08-17] MEDS ORDERED: methaDONE HCL 10 MG TABLET ONE (04:06)
[2021-08-17] MEDS: hydrOXYzine PAMOATE 25 MG CAPSULE (FP) PO SCH ×5 (05:09→22:38)
[2021-08-17] MEDS: methaDONE 80 MG, methaDONE 10 MG PO SCH (05:09)
[2021-08-17] MEDS: LORazepam 0.5 MG TABLET PO SCH ×4 (05:09→22:39)
[2021-08-17] MEDS: METHOCARBAMOL 500 MG TABLET PO PRN (09:07)
[2021-08-17] MEDS: IBUPROFEN 400 MG TABLET (FP) PO PRN (09:07)
[2021-08-17] MEDS: PRENATAL VITAMINS W/ FOLIC ACID TABLET (FP) PO SCH (10:07)
[2021-08-17] MEDS: NICOTINE 21 MG/24 HOURS TOPICAL PATCH TD SCH (10:09)
[2021-08-17] MEDS: MELATONIN 5 MG TABLETS PO SCH (22:38)
[2021-08-17] MEDS: THIAMINE HCL 100 MG TABLET (FP) PO SCH (22:40)
[2021-08-18] MEDS ORDERED: methaDONE HCL 40 MG DISPERSABLE TABLET ONE (04:03)
[2021-08-18] MEDS ORDERED: methaDONE HCL 10 MG TABLET ONE (04:03)
[2021-08-18] MEDS ORDERED: LORazepam 0.5 MG TABLET PO ONE (05:00)
[2021-08-18] MEDS: methaDONE 80 MG, methaDONE 10 MG PO SCH (05:25)
[2021-08-18] MEDS: IBUPROFEN 400 MG TABLET (FP) PO PRN (05:30)
[2021-08-18] MEDS: hydrOXYzine PAMOATE 25 MG CAPSULE (FP) PO SCH ×3 (06:37→14:42)
[2021-08-18] MEDS: PRENATAL VITAMINS W/ FOLIC ACID TABLET (FP) PO SCH (10:25)
[2021-08-18] MEDS: METHOCARBAMOL 500 MG TABLET PO PRN (10:26)
[2021-08-18] MEDS: NICOTINE 21 MG/24 HOURS TOPICAL PATCH TD SCH (11:14)
[2021-08-18 13:25] VITALS: BP 110/82; PULSE 75; TEMP 98
== END 2021-08-18 14:50 | disposition other institution (70) | DRG 773 ==
LOC: YASAS 12:18 → Y6N 16:25
PROVIDERS: ADMIT Allergy & Immunology; ATTEND Allergy & Immunology
PROC: HZ2ZZZZ Detoxification Services for Substance Abuse Treatment (ICD-10-PCS; principal; 2021-08-14)
DX: F10.230 Alcohol dependence with withdrawal, uncomplicated (principal); F11.23 Opioid dependence with withdrawal; F14.20 Cocaine dependence, uncomplicated; F19.280 Other psychoactive substance dependence with psychoactive substance-induced anxiety disorder; F19.24 Other psychoactive substance dependence with psychoactive substance-induced mood disorder; J45.20 Mild intermittent asthma, uncomplicated; F32.A Depression, unspecified; K21.9 Gastro-esophageal reflux disease without esophagitis; M19.071 Primary osteoarthritis, right ankle and foot; Z91.018 Allergy to other foods
CPT/HCPCS: 36415; 80053; 85027; 86780; 87389; 93005; 93010; C9803-CS; U0003; U0005

== ENCOUNTER 2021-08-18 14:49 | Inpatient (IN) | payer OTHER ==
[2021-08-18] MEDS ORDERED: P-EPHED 60MG/TRIPROLIDI 2.5MG TABLET PO PRN (15:20)
[2021-08-18] MEDS ORDERED: MAGNESIUM CITRATE 300 ML BOTTLE PO PRN (15:20)
[2021-08-18] MEDS ORDERED: ACETAMINOPHEN 325 MG TABLET (FP) PO PRN (15:20)
[2021-08-18] MEDS ORDERED: hydrOXYzine PAMOATE 25 MG CAPSULE (FP) PO PRN (15:20)
[2021-08-18] MEDS ORDERED: guaiFENesin 200 MG/10 ML 10 ML UNIT-DOSE CUPS PO PRN (15:20)
[2021-08-18] MEDS ORDERED: BENZOCAINE/MENTHOL (CHLORASEPTIC ) LOZENGE MM PRN (15:20)
[2021-08-18] MEDS ORDERED: MAG HYDROX/AL HYDROX/SIMETH 30 ML UNIT-DOSE CUP PO PRN (15:20)
[2021-08-18] MEDS ORDERED: LOPERAMIDE HCL 2 MG CAPSULE PO PRN (15:20)
[2021-08-18] MEDS ORDERED: MAGNESIUM HYDROX 2400MG/30ML ORAL SUSPENSION 30 ML CUP PO PRN (15:20)
[2021-08-18] MEDS: MELATONIN 5 MG TABLETS PO SCH (21:09)
[2021-08-18] MEDS: IBUPROFEN 400 MG TABLET (FP) PO PRN (21:09)
[2021-08-18] MEDS: THIAMINE HCL 100 MG TABLET (FP) PO SCH (21:10)
[2021-08-19] MEDS ORDERED: methaDONE HCL 40 MG DISPERSABLE TABLET ONE (04:10)
[2021-08-19] MEDS ORDERED: methaDONE HCL 10 MG TABLET ONE (04:10)
[2021-08-19] MEDS: methaDONE 80 MG, methaDONE 10 MG PO SCH (06:07)
[2021-08-19] MEDS: PRENATAL VITAMINS W/ FOLIC ACID TABLET (FP) PO SCH (10:52)
[2021-08-19] MEDS: NICOTINE 21 MG/24 HOURS TOPICAL PATCH TD SCH (10:53)
[2021-08-19] MEDS: IBUPROFEN 400 MG TABLET (FP) PO PRN (19:00)
[2021-08-19] MEDS: THIAMINE HCL 100 MG TABLET (FP) PO SCH (21:52)
[2021-08-19] MEDS: MELATONIN 5 MG TABLETS PO SCH (21:52)
[2021-08-20] MEDS ORDERED: methaDONE HCL 40 MG DISPERSABLE TABLET ONE (04:06)
[2021-08-20] MEDS ORDERED: methaDONE HCL 10 MG TABLET ONE (04:06)
[2021-08-20] MEDS: methaDONE 80 MG, methaDONE 10 MG PO SCH (05:47)
[2021-08-20] MEDS: PRENATAL VITAMINS W/ FOLIC ACID TABLET (FP) PO SCH (11:30)
[2021-08-20] MEDS: NICOTINE 21 MG/24 HOURS TOPICAL PATCH TD SCH (11:30)
[2021-08-20] MEDS: THIAMINE HCL 100 MG TABLET (FP) PO SCH (22:15)
[2021-08-20] MEDS: MELATONIN 5 MG TABLETS PO SCH (22:15)
[2021-08-20] MEDS: IBUPROFEN 400 MG TABLET (FP) PO PRN (22:16)
[2021-08-21] MEDS ORDERED: methaDONE HCL 10 MG TABLET ONE (03:13)
[2021-08-21] MEDS ORDERED: methaDONE HCL 40 MG DISPERSABLE TABLET ONE (03:13)
[2021-08-21] MEDS: methaDONE 80 MG, methaDONE 10 MG PO SCH (05:49)
[2021-08-21] MEDS: PRENATAL VITAMINS W/ FOLIC ACID TABLET (FP) PO SCH (13:54)
[2021-08-21] MEDS: NICOTINE 21 MG/24 HOURS TOPICAL PATCH TD SCH (13:54)
[2021-08-21 17:06] LABS: SARS-CoV-2 NAA Not Detected (Not Detected)
[2021-08-21] MEDS: MELATONIN 5 MG TABLETS PO SCH (22:54)
[2021-08-21] MEDS: THIAMINE HCL 100 MG TABLET (FP) PO SCH (22:54)
[2021-08-21] MEDS: IBUPROFEN 400 MG TABLET (FP) PO PRN (23:45)
[2021-08-22] MEDS ORDERED: methaDONE HCL 40 MG DISPERSABLE TABLET ONE (03:51)
[2021-08-22] MEDS ORDERED: methaDONE HCL 10 MG TABLET ONE (03:51)
[2021-08-22] MEDS: methaDONE 80 MG, methaDONE 10 MG PO SCH (05:29)
[2021-08-22] MEDS: PRENATAL VITAMINS W/ FOLIC ACID TABLET (FP) PO SCH (11:01)
[2021-08-22] MEDS: NICOTINE 21 MG/24 HOURS TOPICAL PATCH TD SCH (11:01)
[2021-08-22] MEDS: MELATONIN 5 MG TABLETS PO SCH (21:33)
[2021-08-22] MEDS: IBUPROFEN 400 MG TABLET (FP) PO PRN (21:33)
[2021-08-22] MEDS: THIAMINE HCL 100 MG TABLET (FP) PO SCH (21:34)
[2021-08-23] MEDS ORDERED: methaDONE HCL 10 MG TABLET ONE (02:52)
[2021-08-23] MEDS ORDERED: methaDONE HCL 40 MG DISPERSABLE TABLET ONE (02:53)
[2021-08-23] MEDS: methaDONE 80 MG, methaDONE 10 MG PO SCH (05:40)
[2021-08-23] MEDS ORDERED: METHOCARBAMOL 500 MG TABLET PO PRN (09:10)
[2021-08-23] MEDS: PRENATAL VITAMINS W/ FOLIC ACID TABLET (FP) PO SCH (11:17)
[2021-08-23] MEDS: NICOTINE 21 MG/24 HOURS TOPICAL PATCH TD SCH (11:17)
[2021-08-23] MEDS: NICOTINE 10 MG CARTRIDGE (INHALER) IH PRN (13:39)
[2021-08-23] MEDS: MELATONIN 5 MG TABLETS PO SCH (21:55)
[2021-08-23] MEDS: THIAMINE HCL 100 MG TABLET (FP) PO SCH (21:55)
[2021-08-24] MEDS ORDERED: methaDONE HCL 40 MG DISPERSABLE TABLET ONE (05:47)
[2021-08-24] MEDS ORDERED: methaDONE HCL 10 MG TABLET ONE (05:47)
[2021-08-24] MEDS: methaDONE 80 MG, methaDONE 10 MG PO SCH (06:20)
[2021-08-24] MEDS: PRENATAL VITAMINS W/ FOLIC ACID TABLET (FP) PO SCH (11:26)
[2021-08-24] MEDS: NICOTINE 21 MG/24 HOURS TOPICAL PATCH TD SCH (11:26)
[2021-08-24] MEDS: THIAMINE HCL 100 MG TABLET (FP) PO SCH (22:31)
[2021-08-24] MEDS: MELATONIN 5 MG TABLETS PO SCH (22:31)
[2021-08-25] MEDS ORDERED: methaDONE HCL 10 MG TABLET ONE (05:35)
[2021-08-25] MEDS: methaDONE 80 MG, methaDONE 10 MG PO SCH (05:36)
[2021-08-25] MEDS ORDERED: methaDONE HCL 40 MG DISPERSABLE TABLET ONE (05:36)
[2021-08-25] MEDS: NICOTINE 10 MG CARTRIDGE (INHALER) IH PRN ×3 (05:38→16:11)
[2021-08-25] MEDS: PRENATAL VITAMINS W/ FOLIC ACID TABLET (FP) PO SCH (10:20)
[2021-08-25] MEDS: NICOTINE 21 MG/24 HOURS TOPICAL PATCH TD SCH (10:20)
[2021-08-25] MEDS: MELATONIN 5 MG TABLETS PO SCH (22:37)
[2021-08-25] MEDS: THIAMINE HCL 100 MG TABLET (FP) PO SCH (22:37)
[2021-08-26] MEDS ORDERED: methaDONE HCL 10 MG TABLET PO SCH (06:15)
[2021-08-26] MEDS ORDERED: methaDONE HCL 10 MG TABLET ONE (06:25)
[2021-08-26] MEDS ORDERED: methaDONE HCL 40 MG DISPERSABLE TABLET ONE (06:26)
[2021-08-26] MEDS: methaDONE 80 MG, methaDONE 10 MG PO SCH (06:42)
[2021-08-26] MEDS: NICOTINE 21 MG/24 HOURS TOPICAL PATCH TD SCH (10:23)
[2021-08-26] MEDS: PRENATAL VITAMINS W/ FOLIC ACID TABLET (FP) PO SCH (10:23)
[2021-08-26] MEDS: MELATONIN 5 MG TABLETS PO SCH (22:12)
[2021-08-26] MEDS: THIAMINE HCL 100 MG TABLET (FP) PO SCH (22:12)
[2021-08-27] MEDS ORDERED: methaDONE HCL 10 MG TABLET ONE (03:18)
[2021-08-27] MEDS ORDERED: methaDONE HCL 40 MG DISPERSABLE TABLET ONE (03:19)
[2021-08-27] MEDS: methaDONE 80 MG, methaDONE 10 MG PO SCH (06:05)
[2021-08-27] MEDS: NICOTINE 21 MG/24 HOURS TOPICAL PATCH TD SCH (11:05)
[2021-08-27] MEDS: PRENATAL VITAMINS W/ FOLIC ACID TABLET (FP) PO SCH (11:05)
[2021-08-27] MEDS: NICOTINE 10 MG CARTRIDGE (INHALER) IH PRN (14:51)
[2021-08-27] MEDS: THIAMINE HCL 100 MG TABLET (FP) PO SCH (22:07)
[2021-08-27] MEDS: MELATONIN 5 MG TABLETS PO SCH (22:07)
[2021-08-28] MEDS ORDERED: methaDONE HCL 10 MG TABLET ONE (05:35)
[2021-08-28] MEDS ORDERED: methaDONE HCL 40 MG DISPERSABLE TABLET ONE (05:36)
[2021-08-28] MEDS: methaDONE 80 MG, methaDONE 10 MG PO SCH (06:12)
[2021-08-28] MEDS: NICOTINE 10 MG CARTRIDGE (INHALER) IH PRN (10:32)
[2021-08-28] MEDS: PRENATAL VITAMINS W/ FOLIC ACID TABLET (FP) PO SCH (10:33)
[2021-08-28] MEDS: NICOTINE 21 MG/24 HOURS TOPICAL PATCH TD SCH (10:33)
[2021-08-28] MEDS: THIAMINE HCL 100 MG TABLET (FP) PO SCH (22:49)
[2021-08-28] MEDS: MELATONIN 5 MG TABLETS PO SCH (22:49)
[2021-08-29] MEDS ORDERED: methaDONE HCL 10 MG TABLET ONE (04:55)
[2021-08-29] MEDS ORDERED: methaDONE HCL 40 MG DISPERSABLE TABLET ONE (04:55)
[2021-08-29] MEDS: methaDONE 80 MG, methaDONE 10 MG PO SCH (07:10)
[2021-08-29] MEDS: PRENATAL VITAMINS W/ FOLIC ACID TABLET (FP) PO SCH (11:41)
[2021-08-29] MEDS: NICOTINE 21 MG/24 HOURS TOPICAL PATCH TD SCH (11:41)
[2021-08-29] MEDS: THIAMINE HCL 100 MG TABLET (FP) PO SCH (21:56)
[2021-08-29] MEDS: MELATONIN 5 MG TABLETS PO SCH (21:56)
[2021-08-30] MEDS ORDERED: methaDONE HCL 10 MG TABLET ONE (04:09)
[2021-08-30] MEDS ORDERED: methaDONE HCL 40 MG DISPERSABLE TABLET ONE (04:10)
[2021-08-30] MEDS: methaDONE 80 MG, methaDONE 10 MG PO SCH (07:05)
[2021-08-30] MEDS: NICOTINE 21 MG/24 HOURS TOPICAL PATCH TD SCH (10:17)
[2021-08-30] MEDS: PRENATAL VITAMINS W/ FOLIC ACID TABLET (FP) PO SCH (10:17)
[2021-08-30] MEDS: MELATONIN 5 MG TABLETS PO SCH (22:00)
[2021-08-30] MEDS: THIAMINE HCL 100 MG TABLET (FP) PO SCH (22:00)
[2021-08-31] MEDS ORDERED: methaDONE HCL 10 MG TABLET ONE (03:11)
[2021-08-31] MEDS ORDERED: methaDONE HCL 40 MG DISPERSABLE TABLET ONE (03:12)
[2021-08-31] MEDS: methaDONE 80 MG, methaDONE 10 MG PO SCH (07:05)
[2021-08-31] MEDS: NICOTINE 21 MG/24 HOURS TOPICAL PATCH TD SCH (10:29)
[2021-08-31] MEDS: PRENATAL VITAMINS W/ FOLIC ACID TABLET (FP) PO SCH (10:29)
[2021-08-31] MEDS: THIAMINE HCL 100 MG TABLET (FP) PO SCH (21:45)
[2021-08-31] MEDS: MELATONIN 5 MG TABLETS PO SCH (21:45)
[2021-09-01] MEDS ORDERED: methaDONE HCL 40 MG DISPERSABLE TABLET ONE (03:32)
[2021-09-01] MEDS ORDERED: methaDONE HCL 10 MG TABLET ONE (03:32)
[2021-09-01] MEDS: methaDONE 80 MG, methaDONE 10 MG PO SCH (07:17)
[2021-09-01] MEDS: NICOTINE 21 MG/24 HOURS TOPICAL PATCH TD SCH (10:19)
[2021-09-01] MEDS: PRENATAL VITAMINS W/ FOLIC ACID TABLET (FP) PO SCH (10:19)
[2021-09-01] MEDS: THIAMINE HCL 100 MG TABLET (FP) PO SCH (21:39)
[2021-09-01] MEDS: MELATONIN 5 MG TABLETS PO SCH (21:39)
[2021-09-02] MEDS ORDERED: methaDONE HCL 40 MG DISPERSABLE TABLET ONE (06:09)
[2021-09-02] MEDS ORDERED: methaDONE HCL 10 MG TABLET ONE (06:09)
[2021-09-02] MEDS: methaDONE 80 MG, methaDONE 10 MG PO SCH (06:09)
[2021-09-02] MEDS: NICOTINE 21 MG/24 HOURS TOPICAL PATCH TD SCH (11:09)
[2021-09-02] MEDS: PRENATAL VITAMINS W/ FOLIC ACID TABLET (FP) PO SCH (11:09)
[2021-09-02] MEDS: THIAMINE HCL 100 MG TABLET (FP) PO SCH (22:11)
[2021-09-02] MEDS: MELATONIN 5 MG TABLETS PO SCH (22:11)
[2021-09-03] MEDS ORDERED: methaDONE HCL 10 MG TABLET ONE (03:36)
[2021-09-03] MEDS ORDERED: methaDONE HCL 40 MG DISPERSABLE TABLET ONE (03:37)
[2021-09-03] MEDS: methaDONE 80 MG, methaDONE 10 MG PO SCH (07:01)
[2021-09-03] MEDS: NICOTINE 21 MG/24 HOURS TOPICAL PATCH TD SCH (10:45)
[2021-09-03] MEDS: PRENATAL VITAMINS W/ FOLIC ACID TABLET (FP) PO SCH (10:45)
[2021-09-03] MEDS: MELATONIN 5 MG TABLETS PO SCH (22:28)
[2021-09-03] MEDS: THIAMINE HCL 100 MG TABLET (FP) PO SCH (22:28)
[2021-09-04] MEDS ORDERED: methaDONE HCL 10 MG TABLET ONE (03:10)
[2021-09-04] MEDS ORDERED: methaDONE HCL 40 MG DISPERSABLE TABLET ONE (03:11)
[2021-09-04] MEDS: methaDONE 80 MG, methaDONE 10 MG PO SCH (06:40)
[2021-09-04] MEDS: NICOTINE 21 MG/24 HOURS TOPICAL PATCH TD SCH (10:12)
[2021-09-04] MEDS: PRENATAL VITAMINS W/ FOLIC ACID TABLET (FP) PO SCH (10:12)
[2021-09-04] MEDS: MELATONIN 5 MG TABLETS PO SCH (21:36)
[2021-09-04] MEDS: THIAMINE HCL 100 MG TABLET (FP) PO SCH (21:37)
[2021-09-05] MEDS ORDERED: methaDONE HCL 40 MG DISPERSABLE TABLET ONE (05:41)
[2021-09-05] MEDS ORDERED: methaDONE HCL 10 MG TABLET ONE (05:41)
[2021-09-05] MEDS: methaDONE 80 MG, methaDONE 10 MG PO SCH (06:26)
[2021-09-05] MEDS: NICOTINE 21 MG/24 HOURS TOPICAL PATCH TD SCH (09:54)
[2021-09-05] MEDS: PRENATAL VITAMINS W/ FOLIC ACID TABLET (FP) PO SCH (09:54)
[2021-09-05] MEDS: MELATONIN 5 MG TABLETS PO SCH (21:50)
[2021-09-05] MEDS: THIAMINE HCL 100 MG TABLET (FP) PO SCH (21:50)
[2021-09-06] MEDS ORDERED: methaDONE HCL 10 MG TABLET ONE (04:14)
[2021-09-06] MEDS ORDERED: methaDONE HCL 40 MG DISPERSABLE TABLET ONE (04:15)
[2021-09-06] MEDS: methaDONE 80 MG, methaDONE 10 MG PO SCH (05:47)
[2021-09-06] MEDS: PRENATAL VITAMINS W/ FOLIC ACID TABLET (FP) PO SCH (10:29)
[2021-09-06] MEDS: NICOTINE 21 MG/24 HOURS TOPICAL PATCH TD SCH (10:29)
[2021-09-06] MEDS: MELATONIN 5 MG TABLETS PO SCH (21:43)
[2021-09-06] MEDS: THIAMINE HCL 100 MG TABLET (FP) PO SCH (21:44)
[2021-09-07] MEDS ORDERED: methaDONE HCL 40 MG DISPERSABLE TABLET ONE (03:43)
[2021-09-07] MEDS ORDERED: methaDONE HCL 10 MG TABLET ONE (03:43)
[2021-09-07] MEDS: methaDONE 80 MG, methaDONE 10 MG PO SCH (06:59)
[2021-09-07] MEDS: PRENATAL VITAMINS W/ FOLIC ACID TABLET (FP) PO SCH (10:32)
[2021-09-07] MEDS: NICOTINE 21 MG/24 HOURS TOPICAL PATCH TD SCH (10:32)
[2021-09-07] MEDS: THIAMINE HCL 100 MG TABLET (FP) PO SCH (21:40)
[2021-09-07] MEDS: MELATONIN 5 MG TABLETS PO SCH (21:40)
[2021-09-08] MEDS ORDERED: methaDONE HCL 40 MG DISPERSABLE TABLET ONE (04:24)
[2021-09-08] MEDS ORDERED: methaDONE HCL 10 MG TABLET ONE (04:24)
[2021-09-08] MEDS: methaDONE 80 MG, methaDONE 10 MG PO SCH (06:36)
[2021-09-08] MEDS: NICOTINE 21 MG/24 HOURS TOPICAL PATCH TD SCH (11:02)
[2021-09-08] MEDS: PRENATAL VITAMINS W/ FOLIC ACID TABLET (FP) PO SCH (11:02)
[2021-09-08] MEDS: MELATONIN 5 MG TABLETS PO SCH (21:46)
[2021-09-08] MEDS: THIAMINE HCL 100 MG TABLET (FP) PO SCH (21:47)
[2021-09-09] MEDS ORDERED: methaDONE HCL 10 MG TABLET ONE (04:05)
[2021-09-09] MEDS ORDERED: methaDONE HCL 40 MG DISPERSABLE TABLET ONE (04:05)
[2021-09-09] MEDS ORDERED: methaDONE 80 MG, methaDONE 10 MG PO SCH (06:00)
[2021-09-09 07:09] VITALS: BP 109/77; PULSE 85; TEMP 97.8
[2021-09-09] MEDS: NICOTINE 21 MG/24 HOURS TOPICAL PATCH TD SCH (10:01)
[2021-09-09] MEDS: PRENATAL VITAMINS W/ FOLIC ACID TABLET (FP) PO SCH (10:01)
== END 2021-09-09 15:00 | disposition home or self-care (01) | DRG 772 ==
LOC: YASAS 14:49 → Y3W 14:50 → Y5N 08-25 15:09
PROVIDERS: ADMIT Allergy & Immunology; ATTEND Allergy & Immunology
PROC: HZ42ZZZ Group Counseling for Substance Abuse Treatment, Cognitive-Behavioral (ICD-10-PCS; principal; 2021-08-18)
DX: F11.20 Opioid dependence, uncomplicated (principal); F10.20 Alcohol dependence, uncomplicated; F14.20 Cocaine dependence, uncomplicated; F17.210 Nicotine dependence, cigarettes, uncomplicated
CPT/HCPCS: C9803-CS; U0003; U0005